=== PATIENT | female | born 1990 | race Two or more races ===

== ENCOUNTER → 2024-09-28 | Emergency (ER) | payer OTHER ==
[~2024-09-28] VITALS: Ht 160 cm; Wt 68.0 kg
[~2024-09-28] MED LIST: A AND D OINTM42.5 GM TOP; CORTISONE60 GM TOP; DEXAMETHASONE SODIUM PHOSPHATE 4 MG/ML VIAL IM ONE
[2024-09-28 14:14] VITALS: BP 120/80; O2SAT 100
== END | disposition home or self-care (01) ==
LOC: ER 10:22
DX: L55.0 Sunburn of first degree (principal); L55.1 Sunburn of second degree; L23.3 Allergic contact dermatitis due to drugs in contact with skin